=== PATIENT | male | born 1965 | race Caucasian/White ===

== ENCOUNTER 2020-09-25 02:50 | Inpatient (IN) ==
[2020-09-25] MEDS ORDERED: ALBUTEROL 2.5 MG/3 ML NEB RESP TX PRN (04:40)
[2020-09-25] MEDS ORDERED: ONDANSETRON 4 MG/2 ML VIAL IV PRN (04:40)
[2020-09-25] MEDS ORDERED: hydrALAZINE 20 MG/1 ML VIAL IV PRN (05:13)
[2020-09-25] MEDS: SODIUM CHLORIDE 0.45% 1,000 ML IV SCH ×2 (06:00→16:17)
[2020-09-25] MEDS: ENOXAPARIN 40 MG/0.4 ML SYRINGE SUBCUT SCH (06:00)
[2020-09-25] MEDS: PANTOPRAZOLE 40 MG TABLET PO SCH (08:49)
[2020-09-26] MEDS: ACETAMINOPHEN 325 MG TABLET PO PRN ×2 (01:01→08:33)
[2020-09-26] MEDS: SODIUM CHLORIDE 0.45% 1,000 ML IV SCH ×3 (01:03→14:07)
[2020-09-26] MEDS: MORPHINE 4 MG/1 ML VIAL IV PRN ×2 (03:02→06:12)
[2020-09-26 05:19] LABS: Basophils # 0.1 10*3/uL (0.0-0.2); Basophils % 0.8 % (0.0-0.8); Eosinophils # 0.3 10*3/uL (0.0-0.87); Eosinophils % 3.4 % (0.00-10.9); Hematocrit 51.5 VOL% (42.0-52.0); Hemoglobin 18.2 GM/DL (14.0-18.0); Immature Granulocytes % 0.4 %; Immature Granulocytes Absolute 0.04 #; Lymphocytes % 21.9 % (21.2-54.2); Mean Corpuscular HGB Conc 35.3 GM/DL (32-36); Mean Corpuscular Volume 87.3 FL (87-102); Mean Platelet Volume 11.9 FL (9.6-12.0); Monocytes % 8.9 % (1.7-12.7); Neutrophils % 64.6 % (38.7-73.9); Platelet Count 151 T/CUMM (130-400); Red Cell Distribution Width 12.8 % (9.3-17.3); White Blood Count 9.2 T/CUMM (4-12)
[2020-09-26 05:46] LABS: Albumin 3.4 G/DL (3.4-5.0); Bilirubin,Total 0.8 MG/DL (0.2-1.0); Calcium 9.1 MG/DL (8.5-10.1); Osmolality,Calculated 278.4 MOS/KG (273-304); Potassium 3.8 MMOL/L (3.5-5.1); Thyroid Stimulating Hormone 2.06 uIU/ml (0.358-3.74); Total Protein 6.7 G/DL (6.4-8.2)
[2020-09-26 05:47] LABS: Vitamin B12 1122 PG/ML (211-911)
[2020-09-26] MEDS: ENOXAPARIN 40 MG/0.4 ML SYRINGE SUBCUT SCH (05:51)
[2020-09-26] MEDS: METOPROLOL SUCCINATE XL 50 MG TABLET PO SCH (08:32)
[2020-09-26] MEDS: PANTOPRAZOLE 40 MG TABLET PO SCH (08:32)
[2020-09-26] MEDS: ALFUZOSIN 10 MG TABLET PO SCH (08:32)
[2020-09-26] MEDS ORDERED: GLUCAGON 1 MG VIAL IM PRN (16:18)
[2020-09-26] MEDS ORDERED: DEXTROSE 50% 25 GM/50 ML VIAL IV PRN (16:18)
[2020-09-26] MEDS ORDERED: DEXAMETHASONE INJ 10 MG in SODIUM CHLORIDE 0.9% 50 ML IV SCH ×2 (16:30→18:00)
[2020-09-26] MEDS: INSULIN REGULAR 100 UNIT/ML SUBCUT SCH ×2 (16:55→20:15)
[2020-09-26] MEDS: methylPREDNISolone SOD SUC 125 MG/2 ML VIAL IV SCH (17:31)
[2020-09-27] MEDS: SODIUM CHLORIDE 0.45% 1,000 ML IV SCH ×3 (00:10→18:18)
[2020-09-27] MEDS: methylPREDNISolone SOD SUC 125 MG/2 ML VIAL IV SCH ×2 (05:31→18:18)
[2020-09-27 05:37] LABS: Basophils % 0.1 % (0.0-0.8); Hematocrit 51.1 VOL% (42.0-52.0); Hemoglobin 17.6 GM/DL (14.0-18.0); Immature Granulocytes % 0.6 %; Immature Granulocytes Absolute 0.07 #; Lymphocytes # 0.8 10*3/uL (1.4-4.0); Lymphocytes % 7.4 % (21.2-54.2); Mean Corpuscular HGB Conc 34.4 GM/DL (32-36); Mean Corpuscular Volume 86.5 FL (87-102); Mean Platelet Volume 11.7 FL (9.6-12.0); Monocytes % 0.7 % (1.7-12.7); Neutrophils % 91.2 % (38.7-73.9); Platelet Count 172 T/CUMM (130-400); Red Blood Count 5.91 MC/CUMM (3.8-5.5); Red Cell Distribution Width 12.5 % (9.3-17.3)
[2020-09-27 05:53] LABS: Calcium 9.4 MG/DL (8.5-10.1); Osmolality,Calculated 279.7 MOS/KG (273-304); Potassium 4.1 MMOL/L (3.5-5.1)
[2020-09-27 06:09] LABS: Lymphocytes 6 % (20-55); Platelet Estimate Adequate; Segmented Neutrophils 93 % (50-85); Total Cells Counted 100
[2020-09-27] MEDS: INSULIN REGULAR 100 UNIT/ML SUBCUT SCH ×4 (07:36→20:51)
[2020-09-27 07:53] LABS: PT Patient Result 11.4 SECS (10.5-12.0)
[2020-09-27] MEDS: ALFUZOSIN 10 MG TABLET PO SCH (09:49)
[2020-09-27] MEDS: METOPROLOL SUCCINATE XL 50 MG TABLET PO SCH (09:49)
[2020-09-27] MEDS: PANTOPRAZOLE 40 MG TABLET PO SCH (09:49)
[2020-09-27 11:48] LABS: Appearance,CSF Clear; Red Blood Cell,CSF 2 C/CUMM; White Blood Cell,CSF 7 C/CUMM
[2020-09-27 11:49] LABS: Neutrophils,CSF 3 %
[2020-09-27 11:50] LABS: Lymphocytes,CSF 76 %; Monocytes,CSF 21 %
[2020-09-27 11:51] LABS: Glucose,CSF 96 MG/DL (40-70)
[2020-09-28 05:24] LABS: Basophils % 0.2 % (0.0-0.8); Hematocrit 51.4 VOL% (42.0-52.0); Hemoglobin 17.6 GM/DL (14.0-18.0); Immature Granulocytes % 1.2 %; Immature Granulocytes Absolute 0.22 #; Lymphocytes % 5.5 % (21.2-54.2); Mean Corpuscular HGB Conc 34.2 GM/DL (32-36); Mean Corpuscular Volume 86.4 FL (87-102); Mean Platelet Volume 11.7 FL (9.6-12.0); Monocytes % 2.3 % (1.7-12.7); Neutrophils % 90.8 % (38.7-73.9); Platelet Count 178 T/CUMM (130-400); Red Blood Count 5.95 MC/CUMM (3.8-5.5); Red Cell Distribution Width 12.6 % (9.3-17.3); White Blood Count 18.7 T/CUMM (4-12)
[2020-09-28 05:46] LABS: Band Neutrophils 1 % (0-10); Lymphocytes 5 % (20-55); Segmented Neutrophils 93 % (50-85); Total Cells Counted 100
[2020-09-28 05:47] LABS: Microcytosis Slight; Platelet Estimate Adequate
[2020-09-28 05:53] LABS: Calcium 9.6 MG/DL (8.5-10.1); Osmolality,Calculated 279.7 MOS/KG (273-304); Potassium 4.1 MMOL/L (3.5-5.1)
[2020-09-28] MEDS: methylPREDNISolone SOD SUC 125 MG/2 ML VIAL IV SCH (06:30)
[2020-09-28] MEDS: ALFUZOSIN 10 MG TABLET PO SCH (08:40)
[2020-09-28] MEDS: INSULIN REGULAR 100 UNIT/ML SUBCUT SCH ×4 (08:41→20:34)
[2020-09-28] MEDS: METOPROLOL SUCCINATE XL 50 MG TABLET PO SCH (08:41)
[2020-09-28] MEDS: SODIUM CHLORIDE 0.45% 1,000 ML IV SCH ×2 (08:41→19:00)
[2020-09-28] MEDS: PANTOPRAZOLE 40 MG TABLET PO SCH (08:41)
[2020-09-28 13:11] LABS: VDRL Spinal Fluid Negative (Negative)
[2020-09-28] MEDS: IMMUNE GLOBULIN 10% 40 GM, IMMUNE GLOBULIN 10% 5 GM in PREMIX 1 EACH IV SCH (19:00)
[2020-09-28] MEDS: ACETAMINOPHEN 325 MG TABLET PO SCH (19:01)
[2020-09-28] MEDS: diphenhydrAMINE CAP 50 MG CAPSULE PO SCH (19:01)
[2020-09-29] MEDS: SODIUM CHLORIDE 0.45% 1,000 ML IV SCH (04:35)
[2020-09-29 05:50] LABS: Basophils % 0.1 % (0.0-0.8); Hematocrit 47.8 VOL% (42.0-52.0); Hemoglobin 16.3 GM/DL (14.0-18.0); Immature Granulocytes Absolute 0.16 #; Lymphocytes # 0.8 10*3/uL (1.4-4.0); Lymphocytes % 5.4 % (21.2-54.2); Mean Corpuscular HGB Conc 34.1 GM/DL (32-36); Mean Corpuscular Volume 86.4 FL (87-102); Monocytes % 8.3 % (1.7-12.7); Neutrophils % 85.2 % (38.7-73.9); Platelet Count 149 T/CUMM (130-400); Red Blood Count 5.53 MC/CUMM (3.8-5.5); Red Cell Distribution Width 12.6 % (9.3-17.3); White Blood Count 15.5 T/CUMM (4-12)
[2020-09-29 06:13] LABS: Calcium 8.6 MG/DL (8.5-10.1); Potassium 3.8 MMOL/L (3.5-5.1)
[2020-09-29] MEDS: PANTOPRAZOLE 40 MG TABLET PO SCH (09:19)
[2020-09-29] MEDS: ACETAMINOPHEN 325 MG TABLET PO SCH (09:19)
[2020-09-29] MEDS: diphenhydrAMINE CAP 50 MG CAPSULE PO SCH (09:19)
[2020-09-29] MEDS: INSULIN REGULAR 100 UNIT/ML SUBCUT SCH ×3 (09:20→18:17)
[2020-09-29] MEDS: ALFUZOSIN 10 MG TABLET PO SCH (09:21)
[2020-09-29] MEDS: IMMUNE GLOBULIN 10% 40 GM, IMMUNE GLOBULIN 10% 5 GM in PREMIX 1 EACH IV SCH (09:21)
[2020-09-29] MEDS: METOPROLOL SUCCINATE XL 50 MG TABLET PO SCH (09:25)
[2020-09-29 13:11] LABS: West Nile Virus Ab, IgG, CSF Negative (Negative); West Nile Virus Ab, IgM, CSF Negative (Negative)
[2020-09-29 15:59] VITALS: BP 147/80
[2020-09-30 16:16] LABS: M. Tuberculosis PCR Result Negative (Negative); M. Tuberculosis PCR Source CSF
== END 2020-09-29 19:36 | disposition hospice, home (50) | DRG 99 ==
LOC: N.5E → SUATTDRO 04:41
PROVIDERS: ADMIT Internal Medicine; ATTEND Emergency Medicine

== ENCOUNTER 2021-03-05 21:16 | Observation (INO) ==
[2021-03-05] MEDS ORDERED: DILTIAZEM 50 MG/10 ML VIAL IV STA ×2 (21:39→22:28)
[2021-03-05] MEDS ORDERED: ASPIRIN 325 MG TABLET PO STA (21:39)
[2021-03-05] MEDS ORDERED: DILTIAZEM 25 MG/5 ML VIAL IV ONE ×2 (21:48→22:42)
[2021-03-05 22:11] LABS: Basophils % 0.4 % (0.0-0.8); Eosinophils # 0.1 10*3/uL (0.0-0.87); Eosinophils % 0.5 % (0.00-10.9); Hematocrit 51.1 VOL% (42.0-52.0); Hemoglobin 17.2 GM/DL (14.0-18.0); Immature Granulocytes % 1.1 %; Immature Granulocytes Absolute 0.12 #; Lymphocytes # 1.7 10*3/uL (1.4-4.0); Mean Corpuscular HGB Conc 33.7 GM/DL (32-36); Mean Corpuscular Volume 85.9 FL (87-102); Mean Platelet Volume 11.1 FL (9.6-12.0); Monocytes % 7.6 % (1.7-12.7); Neutrophils % 74.4 % (38.7-73.9); Platelet Count 180 T/CUMM (130-400); Red Blood Count 5.95 MC/CUMM (3.8-5.5); Red Cell Distribution Width 14.8 % (9.3-17.3); White Blood Count 10.8 T/CUMM (4-12)
[2021-03-05 22:26] LABS: INR 0.9; PT Patient Result 10.5 SECS (10.5-12.0)
[2021-03-05] MEDS ORDERED: DILTIAZEM INJ 100 MG in SODIUM CHLORIDE 0.9% 100 ML IV SCH (22:30)
[2021-03-05 22:34] LABS: Albumin 3.3 G/DL (3.4-5.0); Bilirubin,Total 0.4 MG/DL (0.20-1.00); Calcium 8.9 MG/DL (8.5-10.1); Osmolality,Calculated 288.5 MOS/KG (273-304); Potassium 3.9 MMOL/L (3.5-5.1); Total Protein 6.3 G/DL (6.4-8.2)
[2021-03-06] MEDS ORDERED: ONDANSETRON 4 MG/2 ML VIAL IV PRN (00:15)
[2021-03-06] MEDS ORDERED: DEXTROSE 50% 25 GM/50 ML VIAL IV PRN ×2 (00:15)
[2021-03-06] MEDS ORDERED: GLUCAGON 1 MG VIAL IM PRN (00:15)
[2021-03-06] MEDS ORDERED: ACETAMINOPHEN 325 MG TABLET ONE (08:01)
[2021-03-06] MEDS: INSULIN REGULAR 100 UNIT/ML SUBCUT SCH ×2 (08:08→13:42)
[2021-03-06] MEDS ORDERED: ACETAMINOPHEN 325 MG TABLET PO PRN (08:13)
[2021-03-06 08:48] LABS: Osmolality,Calculated 286.3 MOS/KG (273-304); Potassium 3.7 MMOL/L (3.5-5.1); Risk Ratio 5.58; Thyroid Stimulating Hormone 1.71 uIU/ml (0.358-3.74); VLDL Cholesterol 53.6 MG/DL
[2021-03-06] MEDS ORDERED: PANTOPRAZOLE 40 MG TABLET PO SCH (09:00)
[2021-03-06] MEDS ORDERED: DILTIAZEM CD 120 MG CAPSULE PO SCH (09:36)
[2021-03-06 09:51] LABS: Bilirubin,Urine Negative (Negative); Blood, Urine Small mg/dL (Negative); Glucose,Urine (UA) >=500 mg/dL (Negative); Ketones,Urine Negative (Negative); Mucus,Urine Occasional /LPF (Occasional); Nitrite,Urine Negative (Negative); Protein,Urine Negative; RBC,Urine 18 /HPF (0-4); Squamous Epithelial Cell,Urine Occasional /HPF (0-10); Urine Appearance CLEAR (Clear); Urine Color Yellow (Yellow); Urine Specific Gravity 1.018 (1.001-1.035); Urine Urobilinogen < 2.0 EU/DL (0.2-1.0)
[2021-03-06] MEDS ORDERED: KETOROLAC 15 MG/1 ML VIAL IV PRN (10:10)
[2021-03-06 12:36] VITALS: BP 122/70
== END 2021-03-06 15:01 | disposition home or self-care (01) ==
LOC: EDUNIT# → EDBD → N.ED 21:16 → N.EDINP 03-06 00:15 → INTOOBSV 03-06 00:15 → N.EDINP 03-06 03:42 → N.TELEN 03-06 04:26
PROVIDERS: ADMIT Internal Medicine; ATTEND Internal Medicine